=== PATIENT | female | born 1970 | race African-American/Black ===

== ENCOUNTER 2019-02-27 10:45 | Emergency (ER) | payer MEDICAID ==
[~2019-02-27] VITALS: Ht 177.8 cm; Wt 81.6 kg
[2019-02-27] MEDS ORDERED: ALBUTEROL SULF 2.5 MG/0.5ML(0.5%) NEB SOLN HHN STA (11:01)
[2019-02-27] MEDS ORDERED: IPRATROPIUM BROM 0.5 MG/2.5ML INH SOL NEB ONE (11:15)
[2019-02-27 13:20] VITALS: BP 129/88
== END 2019-02-27 13:21 | disposition home or self-care (01) ==
LOC: ER 10:58
DX: J02.9 Acute pharyngitis, unspecified (principal); J45.909 Unspecified asthma, uncomplicated
CPT/HCPCS: 71046; 81025; 94640; 99284; J7611; J7644